=== PATIENT | male | born 1945 | race Caucasian/White ===

== ENCOUNTER 2017-10-24 22:31 | Emergency (ER) | payer MEDICARE, SELFPAY ==
[2017-10-24 22:48] LABS: #Basophils 0.1 thou/uL (0.0-0.2); #Eosinphils 0.1 thou/uL (0.0-0.7); #Lymphocytes 2.1 thou/uL (1.20-3.40); #Monocytes 0.4 thou/uL (0.11-0.59); %Basophils 1.9 % (0.0-1.0); %Eosinophils 1.3 % (0.0-10.0); %Lymphocytes 45.4 % (21.0-51.0); %Monocytes 8.3 % (0.0-10.0); %Neutrophils 43.2 % (42.0-75.0); Hemoglobin 16.7 g/dL (14.0-18.0); Mean Corpuscular HGB CONC 34.6 g/dL (32.0-36.0); Mean Corpuscular Hemoglobin 31.3 pg (27.0-31.0); Mean Corpuscular Volume 90.2 fl (80.0-94.0); Mean Platelet Volume 6.4 fL (7.4-10.4); Platelet Count 138 thou/uL (130-400); RBC Distribution Width 11.9 % (11.5-14.5); Red Blood Cell (RBC) Count 5.34 mill/uL (4.70-6.10); White Blood Cell (WBC) Count 4.5 thou/uL (4.8-10.8)
--- NOTE | 2017-10-24 22:55 | RAD ---
CHEST ONE VIEW: 10/24/17 HISTORY: Trauma. Fall. COMPARISON: None. FINDINGS: Limited evaluation of the thoracic inlet due to cervical collar. Normal cardiac silhouette. Pulmonary vessels and hilum are normal. Costophrenic angles are clear. Diminished lung volumes, likely due to poor inspiratory effort. No consolidation or mass. No pneumothorax or osseous abnormalities. Atherosc lerosis is identified. IMPRESSION: No acute cardiopulmonary process. POS: [facility]
[2017-10-24 23:03] LABS: ALT (SGPT) 12 U/L (8-55); AST (SGOT) 19 U/L (5-34); Albumin 4.4 g/dL (3.4-4.8); Alkaline Phosphatase 77 U/L (40-150); Anion Gap 17 mmol/L (10-20); BUN (Urea Nitrogen) 9 mg/dL (8.4-25.7); Bilirubin, Total 0.4 mg/dL (0.2-1.2); Calc. Creatinine Clearance 0 mL/min (70-130); Calcium 8.8 mg/dL (7.8-10.44); Carbon Dioxide 21 mmol/L (23-31); Chloride 104 mmol/L (98-107); Estimated GFR-MDRD Greater than 90; Globulin 2.7 g/dL (2.4-3.5); Glucose 104 mg/dL (80-115); Lipase 22 U/L (8-78); Protein, Total 7.1 g/dL (5.8-8.1); Sodium 138 mmol/L (136-145)
[2017-10-24 23:09] LABS: CKMB 1.1 ng/mL (0-6.6); Troponin I Less than 0.010 ng/mL (< 0.028)
--- NOTE | 2017-10-24 23:10 | CT ---
NONCONTRAST CT HEAD 10/24/17 HISTORY: Patient fell face forward onto concrete. Positive LOC. Laceration and hematoma of the forehead. FINDINGS: There is decreased attenuation seen in the periventricular white matter likely reflective of chronic small vessel ischemic changes given patient's age. There is no evidence of an acute cortical infarct ion, hemorrhage, mass effect, or midline shift. There is mild cerebral volume loss present. Ventricul ar system is normal in size, shape, and position for the degree of sulcal atrophy. No calvarial fracture is seen. Mucous retention cyst is present in the left maxillary antrum with min imal mucosal thickening in ethmoidal air cells. Mastoid air cells are clear. There is minimal left anterolateral frontal scalp hematoma with punctate foci of gas suggesting assoc iated laceration. Again, underlying osseous structures appears intact without evidence of a fracture. IMPRESSION: 1. No acute intracranial abnormalities demonstrated. 2. Mild chronic small vessel ischemic changes and cerebral volume loss. 3. Small left frontal scalp hematoma and associated laceration. POS: [facility]
[2017-10-24] MEDS ORDERED: Lidocaine 1% w/Epinephrine 1:100K 20 ML VIAL ONE (23:13)
--- NOTE | 2017-10-24 23:14 | CT ---
CERVICAL SPINE CT WITHOUT CONTRAST HISTORY: Trauma. Status post fall. Neeses patient who had several drinks. Fell face forward onto concrete. COMPARISON: None. TECHNIQUE: Cervical spine CT is performed without contrast. Reformatted images are submitted for interpretation. FINDINGS: Lateral masses of C1 and C2 have appropriate articulation. There is appropriate articulation of the f acets. The occipital condyles have appropriate alignment with respect to the lateral masses of the at las. There is no malalignment of the sagittal reformatted images. There is mild degenerative change a t C5-C6. No high grade central canal stenosis. Varying degrees of foraminal stenosis on the basis of degenerative change. Evaluation is limited by technique. Heterogeneous thyroid gland. No prevertebral soft tissue swelling. No epidural hematoma. The visualized soft tissue neck structures, upper mediastinum, and lung apices are unremarkable. Cerv ical spine vertebral body height is maintained. No fracture. IMPRESSION: No fracture. Results of the cervical spine CT discussed with Dr. Briscoe, 10/24/17 at 10:58 p.m. Code CR POS: [facility]
[2017-10-24 23:26] LABS: PTT 25.7 SEC (22.9-36.1); Prothrombin Time 13.5 SEC (12.0-14.7)
[2017-10-24 23:38] LABS: Acetaminophen Less than 6.0 mcg/mL (10.0-30.0); Alcohol 270 mg/dL (Less than 10); Salicylate Less than 8.0 mg/dL (15.0-30.0)
[2017-10-25] MEDS ORDERED: Adacel (T-DAP) 0.5 ML VIAL ONE (00:29)
== END 2017-10-25 01:16 | disposition home or self-care (01) ==
LOC: ERS 22:31
DX: S01.81XA Laceration without foreign body of other part of head, initial encounter (principal); F10.129 Alcohol abuse with intoxication, unspecified; W19.XXXA Unspecified fall, initial encounter
CPT/HCPCS: 12013; 36415; 70450; 71045; 72125; 80053; 80307; 82553; 83690; 84484; 85025; 85610; 85730; 90471; 90715; 93005; G0390; J2001